=== PATIENT | female | born 1955 | race Caucasian/White ===

== ENCOUNTER → 2018-03-24 18:46 | Outpatient (CLI) | payer OTHER, SELFPAY ==
[2018-03-27 14:26] LABS: HPV Reflexed? NOT INDICATED
== END ==
PROVIDERS: Family Provider Family Medicine; PCP Family Medicine; Visit Provider Nurse Practitioner Adult Health
DX: Z01.419 Encounter for gynecological examination (general) (routine) without abnormal findings (principal)
CPT/HCPCS: 88175; G0145

== ENCOUNTER → 2018-04-24 07:09 | Outpatient (CLI) | payer OTHER, SELFPAY ==
[2018-04-24 10:14] LABS: Anion Gap 7 (5-15); BUN 16 mg/dL (7-18); BUN/Creat Ratio 21.5 RATIO (10-20); Calcium,Total 9.1 mg/dL (8.5-10.1); Chloride 105 mmol/L (98-107); Creatinine, Serum 0.74 mg/dL (0.55-1.02); EST Glomerular Filtration Rate 84 mL/min (>60); Est Glom Filt Rate - Afr Amer 102 mL/min (>60); Glucose 80 mg/dL (74-106); Sodium Level 142 mmol/L (136-145)
== END ==
PROVIDERS: Family Provider Family Medicine; PCP Family Medicine; Referring Provider Nurse Practitioner Adult Health; Visit Provider Nurse Practitioner Adult Health
DX: Z13.1 Encounter for screening for diabetes mellitus (principal)
CPT/HCPCS: 36415; 80048

== ENCOUNTER → 2018-06-17 07:37 | Outpatient (CLI) | payer OTHER, SELFPAY ==
--- NOTE | 2018-06-17 07:43 | BI_ITS ---
MAMMOGRAPHY - BILATERAL SCREENING REASON FOR EXAM: Female, 62 years old. Routine annual screening examination. PERTINENT HISTORY: Mother with breast cancer. TECHNIQUE: Digital bilateral breast kamla (3D mammographic acquisition) in the CC and MLO projections. 2-D mediolateral oblique (MLO) and craniocaudad (CC) views of both breasts were obtained. CAD: Full Field Digital Mammography with Computer Added Detection was performed. COMPARISON: Comparison is made with prior study June 10, 2017 and May 23, 2016. FINDINGS: Breast Composition: The breasts are heterogeneously dense, which may obscure small masses. There are no dominant masses or suspicious calcifications. No other significant abnormalities are identified. There has been no significant change since the prior study. BI/SCREENING MAMM (CAD), BILAT IMPRESSION: Stable bilateral screening mammogram. Yearly follow-up mammogram recommended. (A) ASSESSMENT CATEGORY: BIRADS Category 1: Negative. A letter regarding these results will be sent to the patient by the facility within 30 days. Approximately 10% of breast cancers are not detected by mammography. A normal mammogram should not delay biopsy of a clinically suspicious abnormality. [id number] Electronically Signed: El Bonilla MD at 10:26 EST Tel [phone], Service support ,
== END ==
PROVIDERS: Family Provider Family Medicine; PCP Family Medicine; Referring Provider Nurse Practitioner Adult Health; Visit Provider Nurse Practitioner Adult Health
DX: Z12.31 Encounter for screening mammogram for malignant neoplasm of breast (principal)
CPT/HCPCS: 77063; 77067

== ENCOUNTER → 2018-08-13 15:45 | Outpatient (CLI) | payer OTHER, SELFPAY ==
[2017-07-21 04:34] VITALS: BMI 22.6
--- NOTE | 2018-08-13 16:01 | RAD_ITS ---
STUDY: X-RAY CHEST REASON FOR EXAM: Female, 62 years old. Bronchitis TECHNIQUE: PA and lateral COMPARISON: 07/21/2017 FINDINGS: Lungs are expanded. There are NO infiltrates, effusions or pneumothoraces. There is no demonstrated pleural abnormality. Normal size heart. Normal mediastinum and isabella. Normal visualized pulmonary arteries. Normal visualized aortic arch and descending thoracic aorta. Normal visualized thoracic spine. Normal visualized ribs, clavicles, and shoulders. There is no demonstrated abnormality of the visualized soft tissue structures of the upper abdomen. RAD/Chest PA and Lateral IMPRESSION: There is NO acute cardiopulmonary abnormality. Electronically Signed: Diony Wong MD at 5:48 EST , Service support ,
--- OUTSIDE RECORDS SUMMARY | 2018-10-18 11:28 | XMS RPT_ITS ---
:1955 Author Organization [employer] Address [address] [facility] [place] [address] Phone Care Team Providers Name Role Phone Juan CRAMER, Bala Chowdhury Unavailable Reason for Visit Reason For Visit Description Start Date Follow-up by complaint Preliminary reason for visit data, not yet signed by the author as of right hand Preliminary reason for visit data, not yet signed by the author as of Chief Complaint Chief Complaint Description Start Date right hand Preliminary chief complaint data, not yet signed by the author as of Instructions Instruction Description Start Date Completed Plan of Care Type Date Detail Appointment 09:15 AM Bala Martinez MD, [address] [facility], [address], [place], [address], Appointment 10:00 AM Shikha Terry [facility], [address] [facility], [place], [address], Appointment 08:15 AM Bala Martinez MD, [address] [facility], [address], [place], [address], Medications Medication Instructions Start Stop Generic Name NDC Provider Date Date IBUPROFEN twice a day / IBUPROFEN TABS 06706316080 Bala SERNA 05 Juan CRAMER VITAMIN D3 1 tablet once / CHOLECALCIFEROL [id number] Terena Guerrero 1000 UNIT daily 30 RN TABS VITAMIN C 1 tablet once / ASCORBIC ACID TABS 84917761312 Terena Guerrero TABLET daily 30 RN SUPER 1 tablet once B [id number] Terena Guerrero B-COMPLEX daily 30 [id number] RN TABS CALCIUM-MAGNE 1 tablet twice / CALCIUM-MAGNESIUM- [id number] Terena Guerrero SIUM-ZINC daily 30 ZINC RN 500-250-12.5 MG TABS FLAXSEED OIL twice daily / FLAXSEED (LINSEED) 50946640082 Terena Guerrero CAPS 30 CAPS RN MULTIPLE daily / MULTIPLE VITAMIN 51199229614 Terena Guerrero VITAMINS TABS 30 RN Conditions or Problems Problem Name Problem Onset Status Entry Provider Comment Standard Annotate Code Date Date Description Contracture, 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 08/12 Juan joint of hand I,II,V CT) and IP I Carpal tunnel G56.01 Active Bala Chowdhury Carpal tunnel syndrome right (ICD-10-CM 08/12 08/12 [place] syndrome, right upper limb ) upper limb Bursitis of 459411669 Active Bala Chowdhury Bursitis of right shoulder (SNOMED 09/01 09/[address] [place] [address]) Other M65.842 Active Bala Chowdhury Other synovitis synovitis and (ICD-10-CM 8 8 [place] and tenosynovitis ) tenosynovitis, left hand left hand Unilateral M18.12 Active Bala Chowdhury Unilateral primary (ICD-10-CM 8 8 [place] primary osteoarthritis ) osteoarthritis of first of first carpometacarpa carpometacarpal l joint left joint, left hand hand Unilateral M18.11 Active Bala Chowdhury Unilateral primary (ICD-10-CM 8/11 03/07 [place] primary osteoarthritis ) osteoarthritis of first of first carpometacarpa carpometacarpal l joint right joint, right hand hand Other M65.841 Active Bala Chowdhury Other synovitis synovitis and (ICD-10-CM 03/07 03/07 Juan and tenosynovitis ) tenosynovitis, right hand right hand Allergies, Adverse Reactions, Alerts Allergy Name Reaction Start Date Severity Status Provider Description STINGING Critical Active Terena Guerrero RN INSECTS Social History No information available. Vital Signs Date Name Value Unit Description BMI (Body Mass 20.16 kg/m2 Body Mass Index Index) [Ratio] Preliminary vital sign data, not yet signed by the author as of BP Diastolic 74 mm[Hg] blood pressure, diastolic Preliminary vital sign data, not yet signed by the author as of BP Systolic 124 mm[Hg] blood pressure, systolic Preliminary vital sign data, not yet signed by the author as of Heart Rate 62 /min pulse rate E&M Preliminary vital sign data, not yet signed by the author as of Height 64 [in_us] height E&M Preliminary vital sign data, not yet signed by the author as of Height 163 cm height in centimeters E&M Preliminary vital sign data, not yet signed by the author as of Weight Measured 117 [lb_av] weight E&M Preliminary vital sign data, not yet signed by the author as of Weight Measured 53 kg weight in kilograms E&M Preliminary vital sign data, not yet signed by the author as of Results Date Name Value Unit Range Flag Description Office Visit: Follow-up by complaint, Rm: MEDS REVIEW Done Documentation of current medications (procedure) Preliminary observation data, not yet signed by the author as of EMG HX on 08/12/2017 EMG (electromyograph) history Preliminary observation data, not yet signed by the author as of Preliminary observation data, not yet signed by the author as of Clinical Summary: [facility]MSPatient[facility] SOP account number Procedures Code Procedure Name Date Entry Date [id number] Occupational Therapy G8730 Pain assessment documented as positive - follow-up documented G8427 Current medications documented 1036F Tobacco screening was negative - non user G8420 BMI documented within normal parameters - no follow-up plan is required G8783 Blood pressure within normal parameters - no follow-up required 1006F Osteoarthritis symptoms and functional status assessed [id number] Patient Encounter Medications Administered No information available. Immunizations No information available. Advance Directives There may be information available, but it has not been provided by the sender. Assessments There may be information available, but it has not been provided by the sender. Review of Systems There may be information available, but it has not been provided by the sender. Family History There may be information available, but it has not been provided by the sender. History of Past Illness There may be information available, but it has not been provided by the sender. History of Present Illness There may be information available, but it has not been provided by the sender.
--- OUTSIDE RECORDS SUMMARY | 2018-10-18 11:28 | XMS RPT_ITS ---
:1955 Author Organization OHIP Care Team Providers Name Role Phone BEVERLY FRANKS Referring Unavailable BEVERLY FRANKS Attending Unavailable BEVERLY FRANKS Referring Unavailable Bala Childers Attending Unavailable Bala Childers Referring Unavailable Bala Shirley Primary Care Unavailable Bala Childers Attending Unavailable Bala Childers Referring Unavailable Bala Shirley Primary Care Unavailable Nurse, Yocasta Attending Unavailable Bala Shirley Referring Unavailable Tickpedro, Dalia Attending Unavailable Bala Shirley Primary Care Unavailable Tickpedro, Dalia Referring Unavailable Tickpedro, Dalia Attending Unavailable Tickpedro, Dalia Referring Unavailable Bala Shirley Primary Care Unavailable Tickpedro, Dalia Attending Unavailable Tickton, Dalia Referring Unavailable Bala Shirley Primary Care Unavailable PROBLEMS PROBLEMS DATE TYPE CONDITION / CODE ATTENDING STATUS SOURCE 06/16/2018 Active Unknown / BEVERLY FRANKS Active [facility] UNK(Unknown) A Main [place] Repository 06/16/2018 Active Pain, unspecified NA Active [facility] / R52(ICD-10) Other [place] Repository PROCEDURES PROCEDURES No Procedure Records FoundRESULTS RESULTS CHEST PA AND LATERAL Observed: 08/13/2018 Status: F Source: [place] 4:01 PM [facility] [place] [facility] Imaging Services [address] [place] [address] Chest PA and Lateral MR#: [id number] Acct: [id number] Name: ANTOINE FAITH Rep #: [id number] : 1955 F 62 From: Diony Wong PCP: Bala Shirley MD Status: REG CLI Study: Chest PA and Lateral Date of Exam: 08/13/18 Exam# [id number] Ordering Dr: Bala Childers MD STUDY: X-RAY CHEST REASON FOR EXAM: Female, 62 years old. Bronchitis TECHNIQUE: PA and lateral COMPARISON: 07/21/2017 FINDINGS: Lungs are expanded. There are NO infiltrates, effusions or pneumothoraces. There is no demonstrated pleural abnormality. Normal size heart. Normal mediastinum and isabella. Normal visualized pulmonary arteries. Normal visualized aortic arch and descending thoracic aorta. Normal visualized thoracic spine. Normal visualized ribs, clavicles, and shoulders. There is no demonstrated abnormality of the visualized soft tissue structures of the upper abdomen. RAD/Chest PA and Lateral IMPRESSION: There is NO acute cardiopulmonary abnormality. Electronically Signed: Diony Wong MD at 5:48 EST , Service support , CC: Bala Childers MD; Bala Shirley MD Riveting Machine Operator Tape Control: Signed SCREENING MAMM (CAD), Observed: 06/17/2018 Status: F Source: [place] 7:43 AM [facility] [place] Imaging Services [address] [place] [address] SCREENING MAMM (CAD), BILAT MR#: [id number] Acct: [id number] Name: ANTOINE FAITH Rep #: [id number] : 1955 F 62 From: El Bonilla MD PCP: Bala Shirley MD Status: REG CLI Study: SCREENING MAMM (CAD), BILAT Date of Exam: 06/17/18 Exam# [id number] Ordering Dr: Dalia Taylor PALLIATIVE CARE COORDINATOR-Sade MAMMOGRAPHY - BILATERAL SCREENING REASON FOR EXAM: Female, 62 years old. Routine annual screening examination. PERTINENT HISTORY: Mother with breast cancer. TECHNIQUE: Digital bilateral breast kamla (3D mammographic acquisition) in the CC and MLO projections. 2-D mediolateral oblique (MLO) and craniocaudad (CC) views of both breasts were obtained. CAD: Full Field Digital Mammography with Computer Added Detection was performed. COMPARISON: Comparison is made with prior study June 10, 2017 and May 23, 2016. FINDINGS: Breast Composition: The breasts are heterogeneously dense, which may obscure small masses. There are no dominant masses or suspicious calcifications. No other significant abnormalities are identified. There has been no significant change since the prior study. BI/SCREENING MAMM (CAD), BILAT IMPRESSION: Stable bilateral screening mammogram. Yearly follow-up mammogram recommended. (A) ASSESSMENT CATEGORY: BIRADS Category 1: Negative. A letter regarding these results will be sent to the patient by the facility within 30 days. Approximately 10% of breast cancers are not detected by mammography. A normal mammogram should not delay biopsy of a clinically suspicious abnormality. [id number] Electronically Signed: El Bonilla MD at 10:26 EST Tel [phone], Service support , CC: DORYS Taylor; Bala Shirley MD Riveting Machine Operator Tape Control: Signed PROGRESS Observed: 06/16/2018 Status: COMPLETED Source: [place] 12:16 PM CLINIC OTHER CAMPUS REPOSITORY HNO ID: [id number] Author: Oswald HymanCt) LEIA Diaz Service: (none) Author Type: Clinical Spring Coverer Type: Progress Notes Filed: 06/16/2018 12:16 PM Note Text: NAME:Antoine Faith DATE: June 16, 2018 CCF#: [id number] Pelvis X-Ray COMPLETED TECH ID SIGN: OSWALD DIAZ PROGRESS Observed: 06/16/2018 Status: COMPLETED Source: [place] 8:38 AM CLINIC MAIN CAMPUS REPOSITORY HNO ID: [id number] Author: Beverly Franks Service: (none) Author Type: Physician Type: Progress Notes Filed: 07/14/2018 8:12 PM Note Text: DEPARTMENT OF ORTHOPAEDICS CC: Follow-up visit after total hip replacement HPI: Ms. Faith is here today for her 16 year clinical follow up status post right total hip replacement. Since her last visit Ms. Faith conveys the interval has been complicated by right hand surgery in 04/2017, possible RSD. Pleased with outcome: Yes Pain: 0 on a scale of 1-10 Ambulatory support: none Distance able to walk:unlimited Stairs Normal sequence Requires a handrail: No Able to arise from chair: Yes with ease Able to do shoes/socks: Yes with ease Back issues: No Pain Medication: none REVIEW OF SYSTEMS refer to [facility] report PAST MEDICAL HISTORY Diagnosis Date - Abdominal pain, unspecified site - Diarrhea - Nausea alone PAST SURGICAL HISTORY Procedure Laterality Date - APPENDECTOMY - COLONOSCOP W/ OR W/O [facility] SPEC 03/07/2009 Colonoscopy - PAST SURGICAL HISTORY OF 2001 hip replacement right - PAST SURGICAL HISTORY OF nasal surgery - PAST SURGICAL HISTORY OF past 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 Disp: Rfl: Flaxseed Oil oil Disp: Rfl: ascorbic acid(VITAMIN C 1,000 MG TAB) Take one(1) tablet daily. Disp: Rfl: 0 CALCIUM 500 MG TAB Take one(1) tablet two(2) times daily. Disp: Rfl: 0 CALCIUM-MAGNESIUM 500 MG-250 MG TAB Take one(1) tablet two(2) times daily. Disp: Rfl: 0 vitamin b complex(B COMPLEX CAP) Take one(1) capsule daily. Disp: Rfl: 0 IBUPROFEN 200 MG TAB Take one(1) tablet two(2) times daily. Disp: Rfl: 0 metronidazole(FLAGYL 250 MG TAB) Take (1) three times daily (MAY USE GENERIC) Disp: 30 Rfl: 0 MEDICATION, NON-DATABASE Vit D 1,000 mg Take one(1) tablet daily. Disp: Rfl: 0 sertraline hcl(ZOLOFT 25 MG TAB) Take one(1) tablet daily. Disp: Rfl: 0 No current facility-administered medications for this visit. ALLERGIES No Known Allergies FAMILY HISTORY Problem Relation Age of Onset - other (pancreas cancer) Mother Social History Substance Use Topics - Smoking status: Never Smoker - Smokeless tobacco: Never Used - Alcohol use Yes EXAMINATION: GENERAL: no apparent distress RESP: Unlabored with no shortness of breath CV: No extremity swelling, varices, edema, pallor, erythema Ms. Faith has no difficulty arising out of a chair and has no difficulty ambulating in the exam room. her gait was normal. LOWER EXTREMITIES: Right Hip: . Flexion was 120 degrees, extension full extension, 25 external, 15 degrees internal rotation. Active abduction was 25. Left Hip: Flexion was 120 degrees, extension full extension, 25 external, 15 degrees internal rotation. Active abduction was 25. KNEE EXAM: Examination of both knees was unremarkable with good ROM and stability Both lower extremities were neurovascularly intact, has no evidence of cellulitis, and has no distal swelling. X-RAYS: Status post primary right total hip arthroplasty with uncemented components. Radiographic review has no findings of loosening, has no findings of wear, and has no other complicating process. ASSESSMENT: S/P total hip arthroplasty, significantly improved from pre-operative state and doing well and back to an active lifestyle PLAN: Continue with activities as tolerated. Follow up will be in 2 years. If there are any questions or problems, patient instructed to call the office. Rx Drug Management: No prescription given at today's appointment. Beverly Franks MD XR PELVIS 1V AP Observed: 06/16/2018 Status: F Source: [place] 8:12 AM [facility] OTHER CAMPUS REPOSITORY * * *Final Report* * * DATE OF EXAM: Jun 16 2018 8:12AM [facility] [id number] - XR PELVIS 1V AP / PROCEDURE REASON: [id number] * * * * Physician Interpretation * * * * EXAMINATION: XR PELVIS 1V AP CLINICAL HISTORY: CHECK UP RIGHT FARSHAD-AP LOW PELVIS PER ORTHO DR PROTOCOL Pain Technique: XR PELVIS 1V AP --pelvis with 1 views on 1 images Comparison: 04/09/2016 RESULT: Patient is status post right total hip arthroplasty. The orthopedic hardware appears intact without radiographic evidence of loosening. No acute fracture. The pubic symphysis intact. Mild degenerative changes are present in the left hip. IMPRESSION: Stable right total hip arthroplasty. Riveting Machine Operator Tape Control: PSCB Transcribe Date/Time: Jun 16 2018 8:57A Dictated by : MAEVE APONTE MD This examination was interpreted and the report reviewed and electronically signed by: MAEVE APONTE MD on Jun 16 2018 8:59AM EST [id number] Observed: 06/16/2018 Status: COMPLETED Source: [place] 8:00 AM [facility] MAIN [place] REPOSITORY Office Visit (ORMDNA) ANTOINE FAITH ([id number]) 1955 F Date Time Provider Department 06/16/18 8:00 AM BEVERLY FRANKS During your visit today, we recorded the following information about you: Pulse Blood pressure Weight Height 61/minute 142/65 55.8 kg 1.[address] 06/16/2018 8:41 AM Signed Patient presents with: Recheck: right farshad Beverly Franks MD 07/14/2018 8:12 PM Signed DEPARTMENT OF ORTHOPAEDICS CC: Follow-up visit after total hip replacement HPI: Ms. Faith is here today for her 16 year clinical follow up status post right total hip replacement. Since her last visit Ms. Faith conveys the interval has been complicated by right hand surgery in 04/2017, possible RSD. Pleased with outcome: Yes Pain: 0 on a scale of 1-10 Ambulatory support: none Distance able to walk:unlimited Stairs Normal sequence Requires a handrail: No Able to arise from chair: Yes with ease Able to do shoes/socks: Yes with ease Back issues: No Pain Medication: none REVIEW OF SYSTEMS refer to [facility] report PAST MEDICAL HISTORY Diagnosis Date - Abdominal pain, unspecified site - Diarrhea - Nausea alone PAST SURGICAL HISTORY Procedure Laterality Date - APPENDECTOMY - COLONOSCOP W/ OR W/O [facility] SPEC 03/07/2009 Colonoscopy - PAST SURGICAL HISTORY OF 2002 hip replacement right - PAST SURGICAL HISTORY OF nasal surgery - PAST SURGICAL HISTORY OF past 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 Disp: Rfl: Flaxseed Oil oil Disp: Rfl: ascorbic acid(VITAMIN C 1,000 MG TAB) Take one(1) tablet daily. Disp: Rfl: 0 CALCIUM 500 MG TAB Take one(1) tablet two(2) times daily. Disp: Rfl: 0 CALCIUM-MAGNESIUM 500 MG-250 MG TAB Take one(1) tablet two(2) times daily. Disp: Rfl: 0 vitamin b complex(B COMPLEX CAP) Take one(1) capsule daily. Disp: Rfl: 0 IBUPROFEN 200 MG TAB Take one(1) tablet two(2) times daily. Disp: Rfl: 0 metronidazole(FLAGYL 250 MG TAB) Take (1) three times daily (MAY USE GENERIC) Disp: 30 Rfl: 0 MEDICATION, NON-DATABASE Vit D 1,000 mg Take one(1) tablet daily. Disp: Rfl: 0 sertraline hcl(ZOLOFT 25 MG TAB) Take one(1) tablet daily. Disp: Rfl: 0 No current facility-administered medications for this visit. ALLERGIES No Known Allergies FAMILY HISTORY Problem Relation Age of Onset - other (pancreas cancer) Mother Social History Substance Use Topics - Smoking status: Never Smoker - Smokeless tobacco: Never Used - Alcohol use Yes EXAMINATION: GENERAL: no apparent distress RESP: Unlabored with no shortness of breath CV: No extremity swelling, varices, edema, pallor, erythema Ms. Faith has no difficulty arising out of a chair and has no difficulty ambulating in the exam room. her gait was normal. LOWER EXTREMITIES: Right Hip: . Flexion was 120 degrees, extension full extension, 25 external, 15 degrees internal rotation. Active abduction was 25. Left Hip: Flexion was 120 degrees, extension full extension, 25 external, 15 degrees internal rotation. Active abduction was 25. KNEE EXAM: Examination of both knees was unremarkable with good ROM and stability Both lower extremities were neurovascularly intact, has no evidence of cellulitis, and has no distal swelling. X-RAYS: Status post primary right total hip arthroplasty with uncemented components. Radiographic review has no findings of loosening, has no findings of wear, and has no other complicating process. ASSESSMENT: S/P total hip arthroplasty, significantly improved from pre- operative state and doing well and back to an active lifestyle PLAN: Continue with activities as tolerated. Follow up will be in 2 years. If there are any questions or problems, patient instructed to call the office. Rx Drug Management: No prescription given at today's appointment. Beverly Franks MD Referring Provider: BEVERLY FRANKS [[id number]] Allergies As of Date: 06/16/2018 (No Known Allergies) Date Reviewed: 06/16/2018 Reviewed by: Amara Chadwick CT - Fully Assessed Reason for Visit: Recheck [92] Cmt: right farshad Primary Visit Diagnosis:Status post right hip replacement [Z96.641] Prescriptions as of 06/16/2018 Sig: * VITAMIN C 1,000 MG TABLET Take one(1) tablet daily. * CALCIUM 500 MG TABLET Take one(1) tablet two(2) sowmya* * CALCIUM-MAGNESIUM 500 MG-250 * Take one(1) tablet two(2) sowmya* CHOLECALCIFEROL (VITAMIN D3) * Take 1,000 Units by mouth onc* FLAXSEED OIL * IBUPROFEN 200 MG TABLET Take one(1) tablet two(2) sowmya* * B COMPLEX CAPSULE Take one(1) capsule daily. * MEDICATION, NON-DATABASE Vit D 1,000 mg Take one(1) ta* FLAGYL 250 MG TABLET Take (1) three times daily (M* * ZOLOFT 25 MG TABLET Take one(1) tablet daily. Problem List As Of Date 06/16/2018 Noted Resolved DIARRHEA NOS [R19.7] ABDOMINAL PAIN UNSPEC SITE [R10.9] NAUSEA ALONE [R11.0] INT HEMORRHOID W/O COMPL [K64.8] INVALID FOR* Visit Notes: >> Amarasunni DUPREE FriJun 16, 2018 8:34 AM Status: Signed Patient presents with: Recheck: right farshad Encounter Status:Closed by BEVERLY FRANKS MD on 07/14/18 BASIC METABOLIC Collected: 04/24/2018 Status: F Source: [place] PROFILE (BMP) 7:13 AM [facility] [place] Order Comment: Order Date: 03/24/18 Order Info: 0667-1 - BMP TYPE CODE TESTS RESULT OUT OF RANGE REFERENCE UNITS LAB L501.0100 74-106 mg/dL Normal GLU 80 Result Comment: Please note revised GLUCOSE reference range effective 2017. LAB L501.1000 7-18 mg/dL Normal BUN 16 LAB L501.1100 0.55-1.02 mg/dL Normal CREAT,SERUM 0.74 Result Comment: The validity of the calculated GFR AND GFRAA in patients over 70 years has not been determined. Clinical correlation is essential. LAB L501.1110 >60 mL/min Normal EST GFR 84 Result Comment: Non- GFR Calc LAB L501.1115 >60 mL/min Normal EST GFR - AA 102 Result Comment: GFR Calc LAB L501.1300 10-20 RATIO High BUN/CRE 21.5 LAB L501.2200 8.5-10.1 mg/dL CA Normal 9.1 LAB L501.5300 136-145 mmol/L NA Normal 142 LAB L501.5600 3.5-5.1 mmol/L K Normal 4.0 LAB L501.5900 98-107 mmol/L CL Normal 105 LAB L501.6100 21.0-32.0 mmol/L Normal CO2 30.0 LAB L501.6200 5-15 Normal GAP 7 Performed By: #### L500.2500 #### [facility] [address] [place], [address] PAP I-G W/RFX HRHPV Collected: 03/24/2018 Status: F Source: [place] 10:00 AM [facility] [place] Order Comment: CYTOLOGY INFORMATION: - CLINICAL INFORMATION: POSTMENOPAUSAL - DATE LMP/MENOPAUSE: MENOPAUSE - COLLECTION VIAL: Thin Prep Vial - [facility] WORKER SOURCE: CERVICAL/ENDOCERVICAL - COLLECTION TECHNIQUE: BRUSH/SPATULA Specimen Comment: [id number] Specimen Comment: No. of containers..01 ThinPrep Vial TYPE CODE TESTS RESULT OUT OF RANGE REFERENCE UNITS LAB L7400.0800 . Normal DIAGN Comment Result Comment: NEGATIVE FOR INTRAEPITHELIAL LESION AND MALIGNANCY. CELLULAR CHANGES ASSOCIATED WITH ATROPHY ARE PRESENT. LAB L7400.0900 . Normal ADEQ Comment Result Comment: Satisfactory for evaluation. Endocervical and/or squamous metaplastic cells (endocervical component) are present. LAB L7400.1400 . Normal PERFORM Comment Result Comment: Tian Smith, Liquid Loader (ASCP) LAB L7400.2575 . Normal TEST METHOD Comment Result Comment: This liquid based ThinPrep(R) pap test was screened with the use of an image guided system. LAB L7400.2600 . Normal . COMM LAB L7400.2700 . Normal PAPSMR Comment Result Comment: The Pap smear is a screening test designed to aid in the detection of premalignant and malignant conditions of the uterine cervix. It is not a diagnostic procedure and should not be used as the sole means of detecting cervical cancer. Both false-positive and false-negative reports do occur. LAB L7400.2800 . Normal HPV RFLX Comment Result Comment: The HPV DNA reflex criteria were not met with this specimen result therefore, no HPV testing was performed. [facility] [place] [id number] Brim Raiser: Karen Burton MD, Phone: [phone] Performed By: #### L7400.0350 #### [facility] (refer to report for specific site) refer to report for address and phone number ALLERGIES ALLERGIES DATE TYPE / CODE NAME / CODE REACTION SEVERITY SOURCE 07/21/2017 Drug No Known Unknown [facility] Allergy/416 Allergies/G40692 Hospital 215830(SNOM 0388(RXNORM) Repository ED CT) 11/07/2008 DRUG CORTISONE [facility] INGREDI/419 Other [place] 880573(SNOM Repository ED CT) ENCOUNTERS ENCOUNTERS ADMIT/DISCHARGE ACCOUNT ADMITTING ENCOUNTER LOCATION SOURCE NUMBER CLASS 08/13/2018 [id number] [facility] ing:MTRAD Repository 06/17/2018 [id number] [facility] ing:OPBI Repository 06/16/2018/07/16/20 [id number] Ambulatory [address] Main [place] Repository 06/16/2018/06/16/20 [id number] Ambulatory [address] Other [place] Repository 04/24/2018 [id number] [facility] ing:MTLAB Repository 03/24/2018 [id number] [facility] ing:LABSPEC Repository 03/06/2018/03/06/20 [id number] Ambulatory BMSBuilding:B [address] Repository 09/30/2017 [id number] [facility] ing:PT Repository PAYERS PAYERS ENCOUNTER GUARANTOR PAYER SUBSCRIBER SOURCE 08/13/2018 ANTOINE Stuart Primary ANTOINE Stuart Sinan [id number] Insurance:MEDICAL MANEESEDOB: [address] [id number] Number: Repository [address]Hpj: [phone] [id number] [phone] () Date:2506-63-38TJ [address] [place] [address]CE: 08/13/2018 Secondary NOT GIVENUNK [place] Insurance:SELF PAY [facility] Number: Effective Repository Date:2018-08-13 06/17/2018 ANTOINE Stuart Primary ANTOINE Stuart Sinan [id number] Insurance:MEDICAL MANEESEDOB: [address] [id number], [place] Number: Repository [address]Kpn: [phone] [id number] [phone] (HP) Date:5286-11-36WZ [address] [address]ZC: 06/17/2018 Secondary NOT GIVENUNK [place] Insurance:SELF PAY [facility] Number: Effective Repository Date:2018-04-24 04/24/2018 Antoine C Primary Antoine C Sinan [id number] Insurance:MEDICAL ManeeseDOB: [address] 9827[place] Number: Repository [address]Tmq: [phone] [id number] [phone] (HP) Date:4780-80-17FP [address] [address]LF: 04/24/2018 Secondary NOT GIVENUNK [place]an Insurance:SELF PAY [facility] Number: Effective Repository Date:2018-04-24 03/24/2018 Antoine C Primary Antoine C [place] [id number] Insurance:MEDICAL ManeeseDOB: [address] [id number], [place] Number: Repository [address]Zmy: 330 [id number] [phone] (HP) Date:3579-91-81YY [address] [address]ST: 03/24/2018 Secondary NOT GIVENUNK [place] Insurance:SELF PAY [facility] Number: Effective Repository Date:2018-03-24 03/06/2018 Antoine C Primary Antoine C [place] [id number] Insurance:MEDICAL ManeeseDOB: [address] 1718-63-86PBQ[place], [place] Number: Repository [address]Nsq: [phone] [id number] [phone] (HP) Date:7657-15-11CI [address] [place] [address]ZW: 03/06/2018 Secondary NOT GIVENUNK [place] Insurance:SELF PAY [facility] Number: Effective Repository Date:2018-03-06 09/30/2017 Antoine Stuart Primary Antoine Stuart Sinan [id number] Insurance:MEDICAL ManeeseDOB: [address] [facility] [id number], [place] Number: Repository [id number]: [phone] [id number] [phone] () Date:8153-21-54[address], [place] [address]OE: 09/30/2017 Secondary NOT GIVENUNK [place] Insurance:SELF PAY [facility] Number: Effective Repository Date:2017-09-24
== END ==
PROVIDERS: Family Provider Family Medicine; PCP Family Medicine; Referring Provider Family Medicine; Visit Provider Family Medicine
DX: J20.9 Acute bronchitis, unspecified (principal)
CPT/HCPCS: 71046

== ENCOUNTER → 2019-07-08 09:26 | Outpatient (CLI) | payer OTHER, SELFPAY ==
[2017-07-21 04:34] VITALS: BMI 22.6
[2019-07-08 10:55] LABS: Anion Gap 5 (5-15); BUN 18 mg/dL (7-18); BUN/Creat Ratio 22.3 RATIO (10-20); Calcium,Total 9.8 mg/dL (8.5-10.1); Chloride 106 mmol/L (98-107); Creatinine, Serum 0.81 mg/dL (0.55-1.02); EST Glomerular Filtration Rate 76 mL/min (>60); Est Glom Filt Rate - Afr Amer 92 mL/min (>60); Glucose 94 mg/dL (74-106); Potassium 4.1 mmol/L (3.5-5.1); Sodium Level 141 mmol/L (136-145)
== END ==
PROVIDERS: Family Provider Family Medicine; PCP Family Medicine; Referring Provider Family Medicine; Visit Provider Family Medicine
DX: Z00.00 Encounter for general adult medical examination without abnormal findings (principal)
CPT/HCPCS: 36415; 80048; 84443

== ENCOUNTER 2019-08-26 15:00 | Outpatient (RCR) | payer OTHER, SELFPAY ==
--- NOTE | 2019-08-19 13:47 | HP.OTEVAL ---
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 Date of Evaluation: 08/17/19 Occupational Therapist: Lisa Katz - Subjective Subjective: Pt seen for initial occupational therapy evaluation for 1st MCP sublux/arthritis L thumb. Pt had R thumb sx Apr 2017. Pt has numbness/tingiling and pain L hand limiting her indep w/ BADL/IADL tasks. Pt states has to have her spouse assist with opening containers and she has learned to adapt using different fingers to minimize use of her L thumb as much as possible but she always has increased pain in her left hand. Pt uses paraffin, heating pad, for L hand. States has increased difficulty sleeping because of her L hand pain. Hobbies: attending meetings to variety of different organizations. - Pain L thumb 5 Pain Intensity Range: 5, 9 - Objective Objective/Observation: decreased ROM L thumb, decreased strength L thumb, increased strength L hand - ROM ROM Comments: L thumb IP 0/70' MP 82' CMC 15'. 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 Goal:: Pt will demo no pain greater than 2/10 at rest L thumb by d/c from OT services Goal:: Pt will be educated on joint protection and diagnosis for L hand with good understanding and demo 100%x Goal:: Pt will be educated on L UE HEP with good understanding and demo 100%x Goal:: Pt will use fabricated splint L hand as needed with good skin integrity and positioning of L thumb to stabilize L thumb as needed with good understanding of donning/doffing 75%x. - Rehabilitation General Assessment: Pt seen for initial occupational therapy evaluation for 1st MCP sublux/arthritis L thumb. Pt has numbness/tingiling and pain L hand limiting her indep w/ BADL/IADL tasks. Pt states has to have her spouse assist with opening containers and she has learned to adapt using different fingers to minimize use of her L thumb as much as possible but she always has increased pain in her left hand. Pt would benefit from direct occupational thearpy serivces to increase L thumb strength and L hand strength, educate on joint protection and HEP, minimize pain with use of modalities and orthosis as needed 1-2x/wk x 4-6wks Rehabilitation Potential: Good - Anticipated Interventions Anticipated Interventions: Strengthening, Edema Control, Massage, Modalities, Orthoses, Joint Protection/Energy Conservation, Ergonomic Education, Fine Motor Coord/[place], Education re assistive Equipment, Education re Diagnosis, Education re Skin Care and Precautions, Education re Self Massage Techniques, Education re Correct Donning Tech,Care&Wearing Sched Comp Garments, Home Program - Visit Plan Frequency: 1-2x /Week Duration: 4-6 Weeks General Plan: Pt would benefit from direct occupational thearpy serivces to increase L thumb strength and L hand strength, educate on joint protection and HEP, minimize pain with use of modalities and orthosis as needed TEXT: Thank you for the opportunity to evaluate your patient. For Medicare and Medicare HMO plans, please review the plan of care and approve it. It will need to be FAXED BACK to us at [phone] for Medicare purposes. Please let me know if there are questions or concerns regarding this plan of care. Physician Signature: Date:
--- NOTE | 2020-01-20 17:00 | HP.OT.NRP ---
RASHARD FAITH was seen in my office for initial evaluation on 08/17/19. The following Plan of Care was established for this patient: Initial Frequency: 1-2x /Week Initial Duration: 4-6 Weeks Plan: Cont POC Anticipated Interventions: Strengthening, Edema Control, Massage, Modalities, Orthoses, Joint Protection/Energy Conservation, Ergonomic Education, Fine Motor Coord/[place], Education re assistive Equipment, Education re Diagnosis, Education re Skin Care and Precautions, Education re Self Massage Techniques, Education re Correct Donning Tech,Care&Wearing Sched Comp Garments, Home Program This patient was last seen in our office 08/26/19. Pertinent comments regarding their Occupational therapy will appear below: PT was seen for 4 OT visits. Pt made some improvements with his ROM but continued to have pain with fisting. pt has not scheduled further apts and is D/c at this time due to time lapse in skilled therapy services. At this point I will be discontinuing this patient from occupational therapy. I would be happy to see this patient again in the future if found appropriate by the physician. Thank you! Wanda Mar, OTR/L, CHT
== END 2019-08-26 19:00 | disposition home or self-care (01) ==
LOC: OT 15:00
PROVIDERS: PCP Family Medicine; Referring Provider Family Medicine; Visit Provider Family Medicine
DX: S63.11 Subluxation and dislocation of metacarpophalangeal joint of thumb (principal); M18.9 Osteoarthritis of first carpometacarpal joint, unspecified
CPT/HCPCS: 97035; 97140; 97165; 97166; 97530

== ENCOUNTER → 2019-09-07 09:28 | Outpatient (CLI) | payer OTHER, SELFPAY ==
[2017-07-21 04:34] VITALS: BMI 22.6
--- NOTE | 2019-09-07 09:31 | BI_ITS ---
MAMMOGRAPHY - BILATERAL SCREENING REASON FOR EXAM: Female, 63 years old. Routine annual screening examination. PERTINENT HISTORY: Mother with breast cancer. TECHNIQUE: Digital bilateral breast emanuel (3D mammographic acquisition) in the CC and MLO projections. 2-D mediolateral oblique (MLO) and craniocaudad (CC) views of both breasts were obtained. CAD: Full Field Digital Mammography with Computer Added Detection was performed. COMPARISON: Comparison is made with prior examination dated June 17, 2018 and June 10, 2017. FINDINGS: Breast Composition: The breasts are heterogeneously dense, which may obscure small masses. There are no dominant masses or suspicious calcifications. No other significant abnormalities are identified. There has been no significant change since the prior study. BI/SCREEN MAMM (CAD) W/EMANUEL BILAT IMPRESSION: Stable bilateral screening mammogram. Yearly follow-up mammogram recommended. (A) ASSESSMENT CATEGORY: BIRADS Category 1: Negative. A letter regarding these results will be sent to the patient by the facility within 30 days. Approximately 10% of breast cancers are not detected by mammography. A normal mammogram should not delay biopsy of a clinically suspicious abnormality. [id number] Electronically Signed: [place], at 11:39 EST , Service support ,
--- NOTE | 2019-09-07 09:34 | BD_ITS ---
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 COMPARISON: Comparison is made with prior examination dated June 10, 2017. FINDINGS: Lumbar Spine (L1-L4): g/cm2 (0.946) / T-score (-2.1) / Z-score (-0.7) Findings are suggestive of osteopenia with a high fracture risk. Left Femur Total: g/cm2 (0.812) / T-score (-1.5) / Z-score (-0.5) Left Femoral Neck: g/cm2 (0.737) / T-score (-2.2) / Z-score (-0.8) The T-Scores on the most recent prior examination were: Lumbar Spine (L1-L4): There has been worsening of bone density since the previous examination. Left Femur Total: which represents a worsening of 1.7%. BD/Dexa Bone Density Study IMPRESSION: The patient is considered osteopenic as outlined below according to World Yang Organization (WHO) criteria with a high fracture risk. There has been worsening of bone density since the previous examination. Reference Information: The T-score is the number of standard deviations above or below the standard which is normal for young adults at their peak bone mineral density. The World Health Organization (WHO) interprets the T-scores as follows: Above -1 Normal bone density Between -1 and -2.5 Osteopenia Equal to / or below -2.5 Osteoporosis As a practical clinical guideline, osteopenia may be graded as follows: Mild -1 through -1.5 Moderate -1.6 through -2.0 Severe -2.1 through -2.4 The Z-score is the number of standard deviations above or below age-matched controls. A Z-score of less than -1.5 would be considered abnormal. References: 1. NIH Osteoporosis and Related Bone Diseases http://www.osteo.org 2. International Society for Clinical Densitometry http://www.iscd.org 3. National Osteoporosis Foundation http://www.nof.org Electronically Signed: [place], at 10:18 EST , Service support ,
== END ==
PROVIDERS: Family Provider Family Medicine; PCP Family Medicine; Referring Provider Family Medicine; Visit Provider Family Medicine
DX: Z12.31 Encounter for screening mammogram for malignant neoplasm of breast (principal); M85.80 Other specified disorders of bone density and structure, unspecified site; Z80.3 Family history of malignant neoplasm of breast
CPT/HCPCS: 77063; 77067; 77080

== ENCOUNTER → 2019-09-29 12:06 | Outpatient (CLI) | payer OTHER, SELFPAY ==
[2017-07-21 04:34] VITALS: BMI 22.6
--- NOTE | 2019-09-29 12:09 | RAD_ITS ---
STUDY: X-RAY CHEST REASON FOR EXAM: Female, 63 years old. Fever and cough TECHNIQUE: PA and lateral views of the chest. COMPARISON: 08/13/2018 FINDINGS: The lungs are clear and expanded. There is no demonstrated pleural abnormality. Normal size heart. Normal mediastinum and isabella. Normal visualized pulmonary arteries. There is atherosclerotic calcification of the aortic arch with tortuosity. There are diffuse degenerative changes of the visualized thoracic spine. Normal visualized ribs, clavicles, and shoulders. There is no demonstrated abnormality of the visualized soft tissue structures of the upper abdomen. RAD/Chest PA and Lateral IMPRESSION: No acute pulmonary process Electronically Signed: Felton Toledo MD at 12:20 EST , Service support ,
== END ==
PROVIDERS: PCP Family Medicine; Referring Provider Nurse Practitioner Adult Health; Visit Provider Nurse Practitioner Adult Health
DX: R05 Cough (principal)
CPT/HCPCS: 71046

== ENCOUNTER → 2020-02-23 | Outpatient (CLI) | payer OTHER, SELFPAY ==
[2017-07-21 04:34] VITALS: BMI 22.6
== END | disposition home or self-care (01) ==
LOC: LABSPEC 10:21
PROVIDERS: PCP Family Medicine; Referring Provider Nurse Practitioner Family; Visit Provider Nurse Practitioner Family
DX: Z20.828 Contact with and (suspected) exposure to other viral communicable diseases (principal)
CPT/HCPCS: 87635; U0003

== ENCOUNTER → 2020-05-05 | Outpatient (CLI) | payer OTHER, SELFPAY ==
[2017-07-21 04:34] VITALS: BMI 22.6
== END | disposition home or self-care (01) ==
LOC: LABSPEC 16:29
PROVIDERS: PCP Family Medicine; Referring Provider Family Medicine; Visit Provider Family Medicine
DX: Z20.828 Contact with and (suspected) exposure to other viral communicable diseases (principal)
CPT/HCPCS: 87635; U0003

== ENCOUNTER 2020-07-03 07:45 | Day surgery (SDC) | payer OTHER, SELFPAY ==
[2020-07-03] MEDS: Lactated Ringers 1,000 ML 100 ML IV (08:04)
[2020-07-03 08:05] VITALS: BP 120/91; PULSE 90; RESP 16; TEMP 36.8; O2SAT 99; BMI 17.9
--- NOTE | 2020-07-03 08:39 | H&P.OPEN ---
History of Present Illness Date of Admission: 07/03/20 The patient is a 64 year old F who presents for screening colonoscopy. His last colonoscopy was in [address] Urbina and was negative. Past Medical/Surgical History - Planned Operation Planned Operative Procedure/s: cscope open access Date of Operative Procedure: 07/03/20 Permit Signed: No S.O.S: No Is This Patient Having a Total Joint: No - Previous Hospitalizations/Surgeries HX Hospitalizations: No HX of Surgeries: cscope. right thr. rhinoplasty. appendectomy as child. tonsillectomy as child. hand surgery Any Problems With Anesthesia: Yes - slow to recover per patient You/Your Family Experience Fever (Hyperthermia) With Anes: No Cholinesterase deficiency: No - Cardiovascular Hx Chest Pain within Last 2 months: No Hx of Irregular Heartbeat and/or Afib: No Hx Heart Attack: No Hx Congestive Heart Failure: No Hx Rheumatic Fever: No Hx Hypertension: No Hx Internal Defibrillator: No Hx Pacemaker: No Hx Cardiac Catheterization: No Hx Cardiac Surgery/Stents/Etc.: No Hx Stress Test: No HX Edema: No Hx Pain in Legs when Walking/Leg Cramps: No - Respiratory Chronic Cough: No HX of Shortness of Breath: No Hoarseness: No Hx Chronic Obstructive Pulmonary Disease (COPD): No Hx Asthma: No Hx Emphysema: No Hx Sleep Apnea: No Hx Oxygen Use at Home: No Hx Respiratory Tract Infection/Cold (presently): No Do You Snore Loudly (louder than talking or can be heard): No Do You Often Feel Tired/ Fatigued/ Sleepy Dring Daytime?: No Has Anyone Observed You Stop Breathing During Sleep?: No Result (for STOP score): Negative Hx Smoking: Yes - quit many yrs ago Smoking Status: Former smoker - Gastrointestinal Hx Gastroesophageal Reflux: No Hx Gastrointestinal Disorders: No Hx Gastrointestinal Bleed: No Hx Ulcer: No Hx Hiatal Hernia: No Difficulty Chewing/Swallowing: No Recent Onset of Swallowing Problems: No Special diet followed at home: No Hx Unplanned Weight Loss of 20#: No HX Unplanned Weight Gain of 20#: No - Neurological Hx Seizures: No HX Syncope/Blackout Spells/Unconsciousness: Yes - passed out after getting out of hot tub yrs ago Hx CVA/Stroke: No Hx Transient Ischemic Attacks (TIA): No Hx Multiple Sclerosis: No Hx Parkinson's Disease: No Hx Head/Neck Injury: No Hx Headaches: Yes - migraines in the past Hx Back Injury/Pain: No Recent Onset of Speech Difficulty: No Restless Legs: Yes - occ Does patient have nerve stimulator: No Patient instructed to have device shut off: No Rep notified?: No - Blood Disorder Hx Leukemia: No Bleeding Tendencies: Yes - bruises easily Hx Deep Vein Thrombosis: No Hx High Cholesterol: No Blood Transmitted Disease: No Hx Hepatitis: No Hx Cirrhosis: No Hx Anemia: No Hx Blood Disorders: No - Reproduction : No Is Patient Lactating: No Hx Hysterectomy: No Hx Tubal Ligation: No Are You Post Menopause: Yes - Genitourinary Hx Renal Disease: No - Musculoskeletal Hx Arthritis: Yes Hx Rheumatoid Arthritis: No Hx Gout: No Recent Onset of an Orthopedic Problem: No - Endocrine Hx Diabetes: No Thyroid Disease: No Hx Steroid Therapy: No - Psycho/Social Hx Substance Use: No Hx Alcohol Use: Yes - 1 drink daily Hx Anxiety: Yes - situational Hx Depression: No Mental Illness: No Hx Dementia: No - Miscellaneous Hx Cancer: No Recent Exposure to Contagious Disease: No Active MRSA: No Hx of C-Diff: No Any Loose Teeth: No Allergies No Known Allergies Allergy (Verified 07/03/20 08:04) - Discharge Is Pt Admitted From a Senior Care, or a Residential: No After D/C, Where Do you Plan to Go: Return Home - From the PAT History Number of Risk Factors: 3 - Physical Exam Vitals/I&O's: Vital Signs Temp Pulse Resp BP Pulse Ox 98.3 F 90 16 120/91 H 99 07/03/20 08:05 07/03/20 08:05 07/03/20 08:05 07/03/20 08:05 07/03/20 08:05 Oxygen Delivery Method Room Air Weight: 107 lb 11.133 oz Body Mass Index (BMI) 17.9 General: Alert, Oriented x3 Lungs: Clear to auscultation Cardiovascular: Regular rate, Regular Rhythm, No murmurs Abdomen: Bowel Sounds Present, Soft, Non Tender, Non-Distended Microbiology Past 72 Hours 06/30/20 09:10 Interface Orders SARS-CoV-2 Antigen (Rapid) - Final Current Medications Lactated Ringer's () 1,000 mls @ 100 mls/hr IV .Q10H KARLOS Last Admin: 07/03/20 08:04 Dose: 100 mls/hr Documented by: Assessment/Plan Assessment: Screening colonoscopy Plan: Colonoscopy Surgery Risks - Colonoscopy Risks Include but are not Limited To: Risks include but are not limited to: Bleeding, perforation requiring further surgery, inability to complete colonoscopy requiring barium enema.
[2020-07-03 09:06] VITALS: BP 120/91; BP 93/56; PULSE 66; RESP 16; TEMP 36.6; O2SAT 99
--- NOTE | 2020-07-03 09:08 | OP.CCLET_ITS ---
07/03/2020 Rich Zee [address] [place] [address] Re : Colonoscopy procedure for Antoine Wilder Dear Dr. Zee This procedure was performed on Friday, July 03, 2020. My impressions and recommendations are as follows: Impressions : - Diverticulosis in the sigmoid colon. No specimens collected. - Non-bleeding internal hemorrhoids. No specimens collected. - The examination was otherwise normal. Recommendations : - Discharge patient to home. - Resume previous diet. - Continue present medications. - Await pathology results. - Repeat colonoscopy in 10 years for screening purposes. - Return to primary care physician at appointment to be scheduled. My findings are described in the full procedure note, which is enclosed. If I can be of further assistance, please feel free to contact me at Doctor phone number(s): , Fax: [phone], Work: . Sincerely, MD Dm Ardon MD 07/03/2020 9:07:41 AM This report has been signed electronically.
--- NOTE | 2020-07-03 09:08 | OP.COLON_ITS ---
Patient Name: Antoine Wilder Procedure Date: 07/03/2020 8:42 AM Date of : 1955 Age: 64 Procedure: Colonoscopy Indications: Screening for colorectal malignant neoplasm Providers: Dm Vora MD Referring MD: Rich Zee Medicines: See the Anesthesia note for documentation of the administered medications Patient Profile: This is a 64 year old female. Refer to note in patient chart for documentation of history and physical. Last Colonoscopy: more than 10 years ago. Complications: No immediate complications. Procedure: Pre-Anesthesia Assessment: - Prior to the procedure, a History and Physical was performed, and patient medications and allergies were reviewed. The patient's tolerance of previous anesthesia was also reviewed. The risks and benefits of the procedure and the sedation options and risks were discussed with the patient. All questions were answered, and informed consent was obtained. Prior Anticoagulants: The patient has taken no previous anticoagulant or antiplatelet agents. ASA Grade Assessment: II - A patient with mild systemic disease. After reviewing the risks and benefits, the patient was deemed in satisfactory condition to undergo the procedure. After I obtained informed consent, the scope was passed under direct vision. Throughout the procedure, the patient's blood pressure, pulse, and oxygen saturations were monitored continuously. The Colonoscope was introduced through the anus and advanced to the cecum, identified by appendiceal orifice and ileocecal valve. The colonoscopy was performed without difficulty. The patient tolerated the procedure well. The quality of the bowel preparation was good. Scope In: 8:51:34 AM Scope Withdrawal Time 0 hours 6 minutes 5 seconds Scope Out: 9:03:53 AM Total Procedure Duration Time 0 hours 12 minutes 19 seconds Findings: A few small-mouthed diverticula were found in the sigmoid colon. No biopsies or other specimens were collected for this exam. Non-bleeding internal hemorrhoids were found during retroflexion. The hemorrhoids were mild and small. No biopsies or other specimens were collected for this exam. The exam was otherwise without abnormality. Impression: - Diverticulosis in the sigmoid colon. No specimens collected. - Non-bleeding internal hemorrhoids. No specimens collected. - The examination was otherwise normal. Recommendation: - Discharge patient to home. - Resume previous diet. - Continue present medications. - Await pathology results. - Repeat colonoscopy in 10 years for screening purposes. - Return to primary care physician at appointment to be scheduled. Procedure Code(s): --- Professional --- 36325, Colonoscopy, flexible; diagnostic, including collection of specimen(s) by brushing or washing, when performed (separate procedure) Diagnosis Code(s): --- Professional --- Z12.11, Encounter for screening for malignant neoplasm of colon K64.8, Other hemorrhoids K57.30, Diverticulosis of large intestine without perforation or abscess without bleeding CPT copyright 2017 [employer]. All rights reserved. The codes documented in this report are preliminary and upon detective investigator review may be revised to meet current compliance requirements. MD Dm Ardon MD 07/03/2020 9:07:41 AM This report has been signed electronically. Number of Addenda: 0 Note Initiated On: 07/03/2020 8:42 AM
[2020-07-03 09:11] VITALS: BP 120/91; BP 91/55; PULSE 68; RESP 16; O2SAT 98
[2020-07-03 09:16] VITALS: BP 120/91; BP 97/58; PULSE 70; RESP 16; O2SAT 97
[2020-07-03 09:21] VITALS: BP 120/91; BP 99/57; PULSE 71; RESP 16; TEMP 36.5; O2SAT 100
[2020-07-03 09:47] VITALS: BP 120/91
== END 2020-07-03 09:47 | disposition home or self-care (01) ==
LOC: EN 07:46 → AC 07:46
PROVIDERS: PCP Family Medicine; Referring Provider Family Medicine; Visit Provider Surgery
PROC: 0DJD8ZZ Inspection of Lower Intestinal Tract, Via Natural or Artificial Opening Endoscopic (ICD-10-PCS; CPT 45378; principal; 2020-07-03 08:40)
DX: Z12.11 Encounter for screening for malignant neoplasm of colon (principal); K57.30 Diverticulosis of large intestine without perforation or abscess without bleeding; K64.8 Other hemorrhoids; Z87.891 Personal history of nicotine dependence; Z20.828 Contact with and (suspected) exposure to other viral communicable diseases
CPT/HCPCS: 45378; 87426; C9803; J7120; J1610; J2405

== ENCOUNTER → 2020-11-28 | Outpatient (CLI) | payer OTHER, SELFPAY | END | disposition home or self-care (01) | PROVIDERS: Visit Provider Registered Nurse | DX: B34.9 Viral infection, unspecified (principal) | CPT/HCPCS: 87635; U0002 ==

== ENCOUNTER → 2020-12-07 14:30 | Outpatient (CLI) | payer OTHER, SELFPAY ==
[2020-12-07 17:53] LABS: Absolute Lymphocyte Count 2.02 X10^3/uL (0.83-4.51); Absolute Neutrophil Count 3.5 X10^3/uL (2.0-7.7); Basophil# 0.09 X10^3/uL; Basophil% 1.4 % (0-1); Eosinophil# 0.18 X10^3/uL; Eosinophils% 2.9 % (0-5); Hematocrit 42.8 % (37-47); Hemoglobin 13.2 g/dL (12.0-15.0); Lymphocyte # 2.02 X10^3/ul (0.83-4.51); Lymphocyte % 32.5 % (19-41); Mean Corp Hgb Conc 30.8 g/dL (32-36); Mean Corpuscular Volume 94.1 fL (81-99); Mean Platelet Vol. 9.8 fl (6.2-12.0); Monocyte# 0.46 X10^3/uL; Monocyte% 7.4 % (0-10); NRBC Flagged by Analyzer 0 % (0-5); Neutrophil # 3.46 X10^3/uL (2.7-7.7); Neutrophil % 55.6 % (47-70); Platelet Count 318 K/mm3 (150-450); Red Blood Count 4.55 M/mm3 (4.2-5.4); White Blood Count 6.2 K/mm3 (4.4-11.0)
[2020-12-07 18:27] LABS: Thyroid Stim Hormone (TSH) 1.08 uIU/mL (0.358-3.74)
== END ==
PROVIDERS: PCP Family Medicine; Referring Provider Family Medicine; Visit Provider Nurse Practitioner Family
DX: R53.83 Other fatigue (principal)
CPT/HCPCS: 36415; 84443; 85025